=== PATIENT | male | born 1985 | race Caucasian/White ===

== ENCOUNTER 2022-12-22 13:32 | Outpatient (CLI) | payer OTHER, SELFPAY ==
--- NOTE | 2022-12-22 13:30 | US_ITS ---
WS: [id number] ULTRASOUND SOFT TISSUES LEFT inguinal region. HISTORY: Painful LEFT inguinal region. COMPARISON: None available. TECHNIQUE: 2-D and color Doppler imaging is submitted. Abnormal lymph node in the LEFT groin. This corresponds to the painful area as directed by the patien t. There is a hypoechoic mass measuring 3.1 x 1.6 x 3.1 cm with only minimal increased vascularity. T his is probably an abnormal lymph node. Loss of the normal fatty hilum with displacement. The cortex thickened. There are additional benign-appearing lymph nodes in the LEFT groin. There is also an abnormal lymph node in the RIGHT groin measuring 1.5 x 0.7 x 1.4 cm. It is asymmetri c cortical thickening. The fatty hilum is not as displaced as the LEFT inguinal lymph node. There are additional smaller RIGHT inguinal lymph nodes. US/US soft tissue/extremity [id number] IMPRESSION: 1. Abnormal lymph node at the LEFT groin. This corresponds to the painful mass . 2. Additional abnormal lymph node in the RIGHT groin. This lymph node is not q uite as enlarged or abnormal. 3. These lymph nodes may be reactive or neoplastic. Surgical excision of the L EFT inguinal lymph node may be necessary if adenopathy does not resolve.
== END 2022-12-22 13:33 | disposition home or self-care (01) ==
LOC: RAD 13:34
PROVIDERS: PCP Nurse Practitioner; Visit Provider Nurse Practitioner
DX: R59.0 Localized enlarged lymph nodes (principal)
CPT/HCPCS: 76882